=== PATIENT | female | born 1940 | race Caucasian/White ===

== ENCOUNTER 2016-12-11 10:41 | Emergency (ER) | payer OTHER ==
--- NOTE | 2016-12-11 13:55 | RAD ---
Indication: Back pain, history of breast cancer. CT of the thoracic spine was obtained in the axial plane. Sagittal and coronal reconstructed images were obtained. The vertebral bodies appear normal in height. No compression fracture is noted. There is a lytic lesion at the T6 vertebra in the posterior column. No other lytic lesions are noted. There is C7-T1, T1-T2 and T2-T3 disc space narrowing and degenerative disc disease noted. IMPRESSION: Small lytic lesion at posterior vertebral body of T6 of uncertain etiology. Degenerative disc disease is noted at C7-T1, T1-T2 and T2-T3. No fracture is identified.
--- NOTE | 2016-12-11 14:02 | RAD ---
INDICATION: History of breast cancer back and chest pain. COMPARISON: There are no prior studies available for comparison. TECHNIQUE: A CT scan of the chest was performed without intravenous contrast. Contiguous axial sections were obtained from the lung apices through the lung bases. Images were reconstructed in the coronal and sagittal planes. FINDINGS: The lungs are clear. No pleural effusion is seen. No significant enlarged mediastinal or hilar lymph nodes are seen. There are multiple surgical clips present within both axilla. There are large cystic collections in the upper outer quadrants of both breasts adjacent to the axilla measuring 4.4 x 4.0 cm on the right and 4.2 x 3.3 cm on the left. These likely represent seromas although are a nonspecific finding. Recommend clinical correlation and ultrasonography for further evaluation. The heart is within normal limits in size. No pericardial effusion is present. The thoracic aorta is normal in caliber. There is a 2.1 x 2.9 cm left adrenal mass which measures low density -3 Hounsfield units and therefore most consistent with a benign adenoma. There is a 3.6 cm left renal cyst. There is also a cystic lesion in the anterior aspect of the spleen measuring 3.6 x 3.0 cm in size. The liver is decreased in attenuation consistent with fatty infiltration. No significant focal osseous abnormality is seen. IMPRESSION: 1. THERE ARE LARGE BILATERAL CYSTIC COLLECTIONS IN THE UPPER OUTER QUADRANTS OF BOTH BREASTS MOST CONSISTENT WITH SEROMAS ALTHOUGH NONSPECIFIC FINDING. RECOMMEND CLINICAL CORRELATION AND FOLLOW-UP BILATERAL BREAST ULTRASONOGRAPHY FOR FURTHER EVALUATION. 2. HEPATIC STEATOSIS. 3. LEFT ADRENAL ADENOMA. 4. LEFT RENAL CYST AND CYSTIC LESION WITHIN THE SPLEEN.
--- NOTE | 2016-12-11 14:46 | RAD ---
Indication: Right upper quadrant pain. Real-time sonography of the right upper quadrant was performed. The liver measures 14 cm in length. It is diffusely increased in echogenicity consistent with hepatic steatosis. Hypoechoic areas adjacent to the gallbladder fossa likely represent areas of focal fatty sparing of the gallbladder. The common duct is not dilated measuring up to 4 mm. The gallbladder demonstrates an echogenic foci in the dependent portion which may represent a small polyp or nonshadowing calculi. The right kidney measures 10.1 x 5.1 x 4.5 cm with no hydronephrosis. The pancreas is not visualized due to overlying gas. Aorta and inferior vena cava are unremarkable. IMPRESSION: HEPATIC STEATOSIS WITH AREAS OF FOCAL FATTY SPARING ADJACENT TO THE GALLBLADDER. TINY ECHOGENIC FOCI IN THE DEPENDENT PORTION OF THE GALLBLADDER MAY REPRESENT A SMALL POLYP OR NONSHADOWING CALCULI. NO PERICHOLECYSTIC FLUID OR WALL THICKENING IS NOTED.
[2016-12-11 15:04] LABS: Hematocrit 41 % (35-47); Hemoglobin 13.3 g/dl (12.0-16.0); Mean Corpuscular HGB Conc 33 g/dl (31-36); Mean Corpuscular Hemoglobin 28 pg (27-31); Mean Corpuscular Volume 87 fL (80-97); Mean Platelet Volume 9 um3 (7.4-10.4); Red Blood Count 4.68 10^6/ul (4.0-5.4); Red Cell Distribution Width 16 % (10.5-15); White Blood Count 6.4 10^3/ul (3.5-10.8)
[2016-12-11 15:21] LABS: Albumin 3.9 g/dL (3.2-5.2); BUN/Creatinine Ratio 18.3 (8-20); C Reactive Protein 7.59 mg/L (< 5.00); EGFR African American 103.2 (>60); EGFR Non-African American 80.3 (>60); Globulin 2.9 g/dL (2-4); Potassium 3.8 mmol/L (3.5-5.0); Total Bilirubin 0.8 mg/dL (0.2-1.0); Total Protein 6.8 g/dL (6.4-8.9)
[2016-12-11 16:10] LABS: Urine Bacteria Absent (Absent); Urine Bilirubin Negative (Negative); Urine Glucose Negative (Negative); Urine Nitrite Negative (Negative)
[2016-12-11 17:13] VITALS: BP 175/78
--- NOTE | 2016-12-11 22:38 | ED ---
Sada Tristan Erika, scribed for Marshall Cazares MD on 12/11/16 at 1322 . HPI Chest Pain - HPI Summary HPI Summary: Patient is a 76-year-old female presenting to the ED with a CC of right anterior chest pain and RUQ pain, constant for the past month. She denies trauma or recent heavy lifting. Patient reports that pain is localized below the right breast. She describes the pain as a burning, and states it is worse in the morning when she wakes up. Pain is aggravated by palpation and her clothing rubbing against the skin. Patient denies bruising or rashes. She denies any other pain. Pt takes 81 mg ASA daily. Hx breast CA 7 years ago. Denies PSHx cholecystectomy, appendectomy. - History of Current Complaint Chief Complaint: EDAbdPain Time Seen by Provider: 12/11/16 13:03 Hx Obtained From: Patient Onset/Duration: Started Weeks Ago - about 1 month, Atraumatic, Still Present Timing: Constant Current Severity: Moderate Pain Intensity: 5 Pain Scale Used: 0-10 Numeric Chest Pain Location: Right Anterior Chest Pain Radiates: Yes Chest Pain Radiates To:: Other - RUQ Character: Burning Aggravating Factor(s): Other: - Palpation Alleviating Factor(s): Nothing Associated Signs and Symptoms: Positive: Negative - Allergy/Home Medications Allergies/Adverse Reactions: Allergies Allergy/AdvReac Type Severity Reaction Status Date / Time No Known Allergies Allergy Verified 12/11/16 10:57 PMH/Surg Hx/FS Hx/Imm Hx - Cancer History Cancer Type, Location and Year: Breast CA - 2009 Infectious Disease History: Denies: Traveled Outside the [place] in Last 30 Days - Family History Known Family History: Negative: Cardiac Disease, Hypertension, Diabetes - Social History Occupation: Retired Lives: With Family Alcohol Use: Occasionally Review of Systems Positive: Chest Pain Positive: Abdominal Pain - RUQ Negative: Rash, Bruising All Other Systems Reviewed And Are Negative: Yes Physical Exam Triage Information Reviewed: Yes Vital Signs On Initial Exam: Initial Vitals Temp Pulse Resp BP Pulse Ox 98.1 F 87 16 193/99 99 12/11/16 10:57 12/11/16 10:57 12/11/16 10:57 12/11/16 10:57 12/11/16 10:57 Vital Signs Reviewed: Yes Appearance: Positive: Well-Appearing, No Pain Distress Skin: Positive: Warm, Skin Color Reflects Adequate Perfusion, Dry Head/Face: Positive: Normal Head/Face Inspection Eyes: Positive: Normal ENT: Positive: Normal ENT inspection Neck: Positive: Supple, Nontender Respiratory/Lung Sounds: Positive: Clear to Auscultation, Breath Sounds Present Cardiovascular: Positive: RRR Abdomen Description: Positive: Other: - Mild RUQ tenderness Bowel Sounds: Positive: Present Musculoskeletal: Positive: Other - Tender at the right lower sternal border Neurological: Positive: Normal Psychiatric: Positive: Affect/Mood Appropriate Diagnostics - Vital Signs Vital Signs Temp Pulse Resp BP Pulse Ox 12/11/16 12:02 98.5 F 85 16 157/104 99 12/11/16 10:57 98.1 F 87 16 193/99 99 - Laboratory Lab Results: Lab Results 12/11/16 12/11/16 12/11/16 Range/Units 14:45 14:45 16:00 WBC 6.4 (3.5-10.8) 10^3/ul RBC 4.68 (4.0-5.4) 10^6/ul Hgb 13.3 (12.0-16.0) g/dl Hct 41 (35-47) % MCV 87 (80-97) fL MCH 28 (27-31) pg MCHC 33 (31-36) g/dl RDW 16 H (10.5-15) % Plt Count 141 L (150-450) 10^3/ul MPV 9 (7.4-10.4) um3 Neut % (Auto) 66.8 (38-83) % Lymph % (Auto) 21.5 L (25-47) % Maury % (Auto) 8.9 (1-9) % Eos % (Auto) 2.4 (0-6) % Baso % (Auto) 0.4 (0-2) % Absolute Neuts (auto) 4.3 (1.5-7.7) 10^3/ul Absolute Lymphs (auto) 1.4 (1.0-4.8) 10^3/ul Absolute Monos (auto) 0.6 (0-0.8) 10^3/ul Absolute Eos (auto) 0.2 (0-0.6) 10^3/ul Absolute Basos (auto) 0 (0-0.2) 10^3/ul Absolute Nucleated RBC 0 10^3/ul Nucleated RBC % 0.1 Sodium 138 (133-145) mmol/L Potassium 3.8 (3.5-5.0) mmol/L Chloride 104 (101-111) mmol/L Carbon Dioxide 26 (22-32) mmol/L Anion Gap 8 (2-11) mmol/L BUN 13 (6-24) mg/dL Creatinine 0.71 (0.51-0.95) mg/dL Est GFR ( Amer) 103.2 (>60) Est GFR (Non-Af Amer) 80.3 (>60) BUN/Creatinine Ratio 18.3 (8-20) Glucose 84 (70-100) mg/dL Calcium 9.0 (8.6-10.3) mg/dL Total Bilirubin 0.80 (0.2-1.0) mg/dL AST 22 (13-39) U/L ALT 21 (7-52) U/L Alkaline Phosphatase 54 (34-104) U/L C-Reactive Protein 7.59 H (< 5.00) mg/L Total Protein 6.8 (6.4-8.9) g/dL Albumin 3.9 (3.2-5.2) g/dL Globulin 2.9 (2-4) g/dL Albumin/Globulin Ratio 1.3 (1-3) Lipase 21 (11.0-82.0) U/L Urine Color Ally Urine Appearance Cloudy Urine pH 5.0 (5-9) Ur Specific [place] 1.026 (1.010-1.030) Urine Protein 1+(30 mg/dl) H (Negative) Urine Ketones 2+ H (Negative) Urine Blood Negative (Negative) Urine Nitrate Negative (Negative) Urine Bilirubin Negative (Negative) Urine Urobilinogen Negative (Negative) Ur Leukocyte Esterase Trace H (Negative) Urine WBC (Auto) Trace(0-5/hpf) (Absent) Urine RBC (Auto) Absent (Absent) Ur Squamous Epith Cells Present H (Absent) Urine Bacteria Absent (Absent) Hyaline Casts Present H (Absent) Urine Glucose Negative (Negative) Result Diagrams: 12/11/16 14:45 12/11/16 14:45 Lab Statement: Any lab studies that have been ordered have been reviewed, and results considered in the medical decision making process. - CT T Spine CT CT Interpretation Completed By: Radiologist - IMPRESSION: Small lytic lesion at posterior vertebral body of T6 of uncertain etiology. Degenerative disc disease is noted at C7-T1, T1-T2 and T2-T3. No fracture is identified. Chest CT CT Interpretation Completed By: Radiologist - IMPRESSION: 1. THERE ARE LARGE BILATERAL CYSTIC COLLECTIONS IN THE UPPER OUTER QUADRANTS OF BOTH BREASTS MOST CONSISTENT WITH SEROMAS ALTHOUGH NONSPECIFIC FINDING. RECOMMEND CLINICAL CORRELATION AND FOLLOW-UP BILATERAL BREAST ULTRASONOGRAPHY FOR FURTHER EVALUATION. 2. HEPATIC STEATOSIS. 3. LEFT ADRENAL ADENOMA. 4. LEFT RENAL CYST AND CYSTIC LESION WITHIN THE SPLEEN. - Ultrasound No standard instances Ultrasound Interpretation Completed By: Radiologist - Gallbladder US - IMPRESSION: HEPATIC STEATOSIS WITH AREAS OF FOCAL FATTY SPARING ADJACENT TO THE GALLBLADDER. TINY ECHOGENIC FOCI IN THE DEPENDENT PORTION OF THE GALLBLADDER MAY REPRESENT A SMALL POLYP OR NONSHADOWING CALCULI. NO PERICHOLECYSTIC FLUID OR WALL THICKENING IS NOTED. Re-Evaluation - Re-Evaluation First Eval Re-Evaluation Time: 16:29 Comment: Discussed all results with patient and need for follow up Chest Pain Course/Dx - Course Course Of Treatment: Ms. Tillman has a lytic lesion at D6 but although I think her pain is radicular and D6 would make sense, I don't see how the lesion is responsible. I recommended symptomatic treatment for now and F/U for further testing and she is willing to F/U with the Physician Referral Service. - Diagnoses Provider Diagnoses: Radiculopathy of thoracic region Discharge - Discharge Plan Condition: Stable Disposition: HOME Prescriptions: traMADol TAB* [Ultram*] 25 mg PO Q6HR PRN #20 tab MDD 100 PRN Reason: Pain Patient Education Materials: Chest Wall Pain (ED) Referrals: [facility] [place] [facility]IAN REFERRAL [Outside] Additional Instructions: Please follow up with the physician referral service for additional testing. Prescription was sent to [facility] on [facility]. The documentation as recorded by the Sada zhao Erika accurately reflects the service I personally performed and the decisions made by me, Marshall Cazares MD.
== END 2016-12-11 17:00 | disposition home or self-care (01) ==
LOC: ED 10:41
DX: M54.14 Radiculopathy, thoracic region (principal); R10.11 Right upper quadrant pain; R07.9 Chest pain, unspecified
CPT/HCPCS: 36415; 71250; 72128; 76705; 80053; 81003; 81015; 83690; 85025; 86140; 87086; 99281